=== PATIENT | female | born 1995 | race African-American/Black ===

== ENCOUNTER 2018-11-17 17:16 | Emergency (ER) | payer SELFPAY ==
[2018-11-17] MEDS ORDERED: KETOROLAC TROMETHAMINE 60 MG/2 ML SDV IM ONE (19:40)
[2018-11-17] MEDS ORDERED: ONDANSETRON 4 MG TAB.RAPDIS PO ONE (19:40)
--- NOTE | 2018-11-17 19:44 | ER Document Report ---
ED Medical Screen (RME) - General Chief Complaint: Headache Stated Complaint: URINARY PROBLEMS Time Seen by Provider: 11/17/18 19:34 TRAVEL OUTSIDE OF THE [place] IN LAST 30 DAYS: No - HPI Notes: 11/17/18 19:43 Patient is a 23-year-old female no significant past medical history aside from migraines who presents complaining of a migraine that began this morning with nasal congestion and discharge. Patient states that she is also had vaginal discharge consistent with previous yeast infections. She is currently on her menstrual cycle. She is otherwise able to eat and drink without difficulty. She is urinating normally and having normal bowel movements. Denies drug allergies. Patient is declining pelvic exam. Denies fever, neck pain, CP, SOB, Abd pain, or rash. I have treated and performed a rapid initial assessment of this patient. A comprehensive ED assessment and evaluation of the patient, analysis of test results and completion of medical decision making process will be conducted by a dditional ED providers. PHYSICAL EXAMINATION: GENERAL: Well-appearing, well-nourished and in no acute distress. A&Ox4. Answers questions appropriately. Eyes: PERRLA, EOMI b/l. No nystagmus LUNGS: Breath sounds clear to auscultation bilaterally and equal. No wheezes rales or rhonchi. HEART: Regular rate and rhythm without murmurs, rubs, gallops. Extremities: No cyanosis, clubbing, or edema b/l. NEUROLOGICAL: Normal speech, normal gait. Cranial nerves grossly intact. NIH 0. PSYCH: Normal mood, normal affect. - Related Data Allergies/Adverse Reactions: No Known Allergies Allergy (Unverified 11/17/18 17:58) Past Medical History Renal/ Medical History: Denies: Hx Peritoneal Dialysis - Immunizations Immunizations up to date: Yes Hx Diphtheria, Pertussis, Tetanus Vaccination: No Physical Exam - Vital signs Vitals: Temp Pulse Resp BP Pulse Ox 98.8 F 76 20 139/83 H 100 11/17/18 18:25 11/17/18 18:25 11/17/18 18:25 11/17/18 18:25 11/17/18 18:25 Course - Vital Signs Vital signs: Temp Pulse Resp BP Pulse Ox 98.8 F 76 20 139/83 H 100 11/17/18 18:25 11/17/18 18:25 11/17/18 18:25 11/17/18 18:25 11/17/18 18:25
[2018-11-18] MEDS ORDERED: DIPHENHYDRAMINE HCL 50 MG/ML VIAL IV ONE (01:25)
[2018-11-18] MEDS ORDERED: METOCLOPRAMIDE HCL INJ/PF 10 MG/2 ML SDV IV ONE (01:26)
--- NOTE | 2018-11-18 02:24 | RADIOLOGY REPORT (SQ) ---
EXAM DESCRIPTION: CT HEAD WITHOUT IV CONTRAST COMPLETED DATE/TME: 11/18/2018 01:27 CLINICAL HISTORY: 23 years Female, recurring headaches COMPARISON: None. TECHNIQUE: No contrast. Coronal and sagittal reformat. This exam was performed according to our departmental dose-optimization program, which includes automated exposure control, adjustment of the mA and/or kV according to patient size and/or use of iterative reconstruction technique. FINDINGS: No hemorrhage or infarct. No mass, mass effect, or midline shift. Brain and extra-axial structures appear intact. IMPRESSION: Normal CT of the head.
[2018-11-18] MEDS ORDERED: FLUCONAZOLE 100 MG TABLET PO ONE (02:35)
[2018-11-18 03:17] LABS: CHLAM PCR NOT DETECTED (NOT DETECT); GON PCR NOT DETECTED (NOT DETECT)
--- NOTE | 2018-11-18 03:56 | ER Document Report ---
ED General - General Chief Complaint: Headache Stated Complaint: URINARY PROBLEMS Time Seen by Provider: 11/17/18 19:34 Notes: Patient is a 23-year-old female with 2 separate complaints. First complaint is of recurrent yeast infection. She has been using Monistat cream which is helped however she cannot get these infections go fully away. She has some irritation to the vaginal area and she said she will have this some intermittent discharge that is white and thick. She denies any fevers. She denies any concerns for sexual transmitted disease. She is sexually active. Patient second complaint is of a headache. Patient says she has recurring headaches have been ongoing for a long time. She has not seen a doctor about it. She has not been placed on any medications for her recurrent headaches. Her headaches are always the in the same location. The main on the left side and across the top of the head. She has associated photophobia. They are intermittent. They are gradual in onset not sudden onset. No focal weakness or numbness into the extremities. TRAVEL OUTSIDE OF THE [place] IN LAST 30 DAYS: No - Related Data Allergies/Adverse Reactions: peanut Allergy (Verified 11/18/18 04:32) Past Medical History - Social History Smoking Status: Unknown if Ever Smoked Frequency of alcohol use: None Drug Abuse: None Family History: Reviewed & Not Pertinent Patient has suicidal ideation: No Patient has homicidal ideation: No Renal/ Medical History: Denies: Hx Peritoneal Dialysis - Immunizations Immunizations up to date: Yes Hx Diphtheria, Pertussis, Tetanus Vaccination: No Review of Systems - Review of Systems Notes: My Normal Review Basic REVIEW OF SYSTEMS: CONSTITUTIONAL : Denies fever, chills, or sweats. Denies recent illness. RESPIRATORY: Denies cough, cold, or chest congestion. Denies shortness of breath, difficulty breathing, or wheezing. GASTROINTESTINAL: Denies abdominal pain. Denies nausea, vomiting, or diarrhea. GENITOURINARY: Denies difficulty urinating, painful urination, burning, frequency, or blood in urine. FEMALE GENITOURINARY: Vaginal soreness. MUSCULOSKELETAL: Denies neck or back pain or joint pain or swelling. SKIN: Denies rash or skin lesions. NEUROLOGICAL: Denies altered mental status or loss of consciousness. Has a headache. Denies weakness or paralysis or loss of use of either side. Denies problems with gait or speech. Denies sensory or motor loss. ALL OTHER SYSTEMS REVIEWED AND NEGATIVE. Physical Exam - Vital signs Vitals: Temp Pulse Resp BP Pulse Ox 98.8 F 76 20 139/83 H 100 11/17/18 18:25 11/17/18 18:25 11/17/18 18:25 11/17/18 18:25 11/17/18 18:25 - Notes Notes: General Appearance: Well nourished, alert, cooperative, no acute distress, mild obvious discomfort. Vitals: reviewed, See vital signs table. Head: no swelling or tenderness to the head Eyes: PERRL, EOMI, Conjuctiva clear Mouth: No decreasd moisture Throat: No tonsillar inflammation, No airway obstruction, No lymphadenopathy Neck: Supple, no neck tenderness, no neck swelling. Pelvic exam: External pelvic exam performed with female Gladys Davila, at bedside. Patient has mild redness near the vaginal introitus. No redness or swelling to remainder of the vaginal labia. No abnormal discharge. Extremities: strength 5/5 in all extremities, good pulses in all extremities, no swelling or tenderness in the extremities, no edema. Skin: warm, dry, appropriate color, no rash Neuro: speech clear, oriented x 3, normal affect, responds appropriately to questions. Cranial nerves II through XII are intact. Distal sensation intact. Patient moves all extremities without difficulty. Course - Re-evaluation Re-evalutation: 11/18/18 05:48 I did give the patient Reglan to help her headache. On pelvic exam I do not see any abnormal discharge. She does have some redness and irritation around the vaginal introitus. She does not have much vaginal or labial swelling. This could indicate a partially treated yeast infection. Therefore have given a dose of Diflucan. Patency test is negative. Gonorrhea and chlamydia testing are negative. At this time I feel the patient is safe to be discharged home. I informed her to follow-up closely with local primary care doctor for reevaluation and continued work-up of headaches. CT scan was obtained the patient has had chronic recurrent headaches for a long time which have been worsening in frequency. Plan to make sure patient does not have any evidence of a large brain tumor mass. The skin was negative for brain tumor mass. Suspect patient probably does have an undiagnosed migraine disorder therefore performed patient during her friend at bedside that support that she does follow-up with primary care doctor for continued management work-up of her headaches. I strongly encouraged her return to ER immediately if she has severe sudden onset headache, vomiting, fevers, she feels unwell. I do not suspect subarachnoid hemorrhage at this time as patient's headaches are gradual in onset and intermittent and she has no neurologic deficits and they are not maximal in onset. Dictation of this chart was performed using voice recognition software; therefore, there may be some unintended grammatical errors. 11/18/18 05:50 - Vital Signs Vital signs: Temp Pulse Resp BP Pulse Ox 97.9 F 70 18 131/73 H 100 11/18/18 04:14 11/18/18 04:14 11/18/18 04:14 11/18/18 04:14 11/18/18 04:14 Discharge - Discharge Clinical Impression: Candidal vaginitis Headache Qualifiers: Headache type: unspecified Headache chronicity pattern: episodic headache Intractability: not intractable Qualified Code(s): R51 - Headache Condition: Good Disposition: HOME, SELF-CARE Additional Instructions: Please follow-up with a local primary care doctor for reevaluation. I have given you a dose of Diflucan and this should help with any yeast infection in the vaginal area. Please return to ER immediately if you have severe headache, vomiting, fevers, passing out, or feel that you are worsening in any way. I have prescribed you Reglan. This medication can take if you have a migraine does not improve with Tylenol. This medicine may make you little bit sleepy so please avoid driving after taking it. Prescriptions: Metoclopramide HCl [Reglan 10 mg Tablet] 1 tab PO ASDIR PRN #25 tablet PRN Reason: Forms: Special Work Note
[2018-11-18 04:16] VITALS: BP 131/73
== END 2018-11-18 04:21 | disposition home or self-care (01) ==
LOC: ER 17:16
DX: B37.3 Candidiasis of vulva and vagina (principal); R51 Headache; Z91.010 Allergy to peanuts
CPT/HCPCS: 99284; 96372; 96374; 96375; 81025; 87491; 87591; 70450; J1200; J1885; S0119; J2765